=== PATIENT | female | born 1965 | race American Indian/Alaskan Native ===

== ENCOUNTER 2017-09-19 15:23 | Emergency (ER) | payer MEDICAID, OTHER ==
--- NOTE | 2017-09-19 16:50 | XRay Report ---
FINAL REPORT EXAM: XR CHEST ROUTINE 2V HISTORY: shortness of breath TECHNIQUE: PA and lateral views of the chest PRIORS: None. FINDINGS: Lines, tubes, and devices: N/A Lungs and pleura: Trachea is normal in position. Lungs are clear of infiltrate, pleural effusion, vascular congestion, or pneumothorax. Cardiomediastinal silhouette: Cardiac and mediastinal silhouettes are unremarkable. Other: Bony structures are intact. IMPRESSION: No acute cardiopulmonary process seen.
[2017-09-19 17:40] LABS: Basophils % (Auto) 0.4 % (0.0-1.8); Eosinophils # (Auto) 0.1 K/mm3 (0.0-0.4); Eosinophils % (Auto) 2.3 % (0.0-4.3); Hemoglobin 14.2 gm/dl (10.1-14.3); Lymphocytes # (Auto) 0.6 K/mm3 (1.2-5.4); Lymphocytes % (Auto) 18.2 % (13.4-35.0); Mean Corpuscular HGB Conc 34 % (30-34); Mean Corpuscular Hemoglobin 33 pg (28-32); Mean Corpuscular Volume 99 fl (79-97); Monocytes # (Auto) 0.4 K/mm3 (0.0-0.8); Monocytes % (Auto) 11.9 % (0.0-7.3); Platelet Count 179 K/mm3 (140-440); Red Blood Count 4.26 M/mm3 (3.65-5.03); Red Cell Distribution Width 14.2 % (13.2-15.2)
[2017-09-19 18:01] LABS: BUN/Creatinine Ratio 25; Blood Urea Nitrogen 15 mg/dL (7-17); Calcium 9.3 mg/dL (8.4-10.2); Hemolysis Index 14
[2017-09-20] MEDS ORDERED: PROVENTIL IH ONE (04:30)
[2017-09-20] MEDS ORDERED: ATROVENT IH ONE (04:30)
[2017-09-20] MEDS ORDERED: NACL 0.9% 1000 ML 1,000 ML IV ONE (04:32)
--- NOTE | 2017-09-20 05:50 | Emergency Department Report ---
- General Chief Complaint: Upper Respiratory Infection Stated Complaint: UPPER RESP INFECTION Time Seen by Provider: 09/20/17 04:26 Source: patient Mode of arrival: Ambulatory Limitations: No Limitations - History of Present Illness Initial Comments: Patient is a 52-year-old [place] female with past medical history of asthma who is presenting with 3 weeks of cough cold congestion or wheezing. Patient states she did go to urgent care and was started on prednisone but this did not relieve her symptoms. Patient states she has had a fever. Patient states that the cough is very irritating is giving her some mild chest discomfort. There is no pleuritic chest pain but rather with soreness in the chest. Patient denies nausea vomiting diarrhea sore throat. She does have some back ache and shoulder ache with the cough but there is no arm or leg discomfort at this time. Improves With: nothing Worsens With: nothing - Related Data Home Medications Medication Instructions Recorded Confirmed Last Taken Hydroxychloroquine [Plaquenil] 200 mg PO QDAY 05/12/15 11/01/15 05/12/15 06:00 200 Lisinopril [Zestril TAB] 10 mg PO QDAY 05/12/15 11/01/15 05/12/15 06:00 10 Previous Rx's Medication Instructions Recorded Last Taken Type HYDROcodone/APAP 10-325 [[place] 1 each PO Q6HR PRN #20 tablet 05/12/15 Unknown Rx 10/325] Azithromycin [Zithromax Z-DERECK] 250 mg PO DAILY #6 tab 11/01/15 Unknown Rx Fluticasone [Flonase] 1 spray NS QDAY #1 bottle 11/01/15 Unknown Rx guaiFENesin/CODEINE [Robitussin AC] 5 ml PO Q6H PRN #100 ml 11/01/15 Unknown Rx predniSONE [Deltasone] 20 mg PO BID #10 tab 11/01/15 Unknown Rx Benzonatate [Tessalon Perle] 100 mg PO Q6HR #12 capsule 09/20/17 Unknown Rx Doxycycline [Vibramycin] 100 mg PO Q12HR #14 capsule 09/20/17 Unknown Rx predniSONE [Deltasone] 20 mg PO QDAY #5 tab 09/20/17 Unknown Rx Allergies Allergy/AdvReac Type Severity Reaction Status Date / Time No Known Allergies Allergy Verified 09/19/17 15:56 ED Review of Systems ROS: Stated complaint: UPPER RESP INFECTION Other details as noted in HPI Comment: All other systems reviewed and negative ED Past Medical Hx - Past Medical History Previous Medical History?: Yes Hx Hypertension: Yes Hx Asthma: Yes Additional medical history: lupus - Surgical History Additional Surgical History: tubal ligation - Social History Smoking Status: Former Smoker Substance Use Type: Alcohol - Medications Home Medications: Home Medications Medication Instructions Recorded Confirmed Last Taken Type HYDROcodone/APAP 10-325 [[place] 1 each PO Q6HR PRN #20 tablet 05/12/15 11/01/15 Unknown Rx 10/325] Hydroxychloroquine [Plaquenil] 200 mg PO QDAY 05/12/15 11/01/15 05/12/15 06:00 History 200 Lisinopril [Zestril TAB] 10 mg PO QDAY 05/12/15 11/01/15 05/12/15 06:00 History 10 Azithromycin [Zithromax Z-DERECK] 250 mg PO DAILY #6 tab 11/01/15 Unknown Rx Fluticasone [Flonase] 1 spray NS QDAY #1 bottle 11/01/15 Unknown Rx guaiFENesin/CODEINE [Robitussin AC] 5 ml PO Q6H PRN #100 ml 11/01/15 Unknown Rx predniSONE [Deltasone] 20 mg PO BID #10 tab 11/01/15 Unknown Rx Benzonatate [Tessalon Perle] 100 mg PO Q6HR #12 capsule 09/20/17 Unknown Rx Doxycycline [Vibramycin] 100 mg PO Q12HR #14 capsule 09/20/17 Unknown Rx predniSONE [Deltasone] 20 mg PO QDAY #5 tab 09/20/17 Unknown Rx ED Physical Exam - General Limitations: No Limitations General appearance: alert, in no apparent distress - Head Head exam: Present: atraumatic, normocephalic - Eye Eye exam: Present: normal appearance - ENT ENT exam: Present: mucous membranes moist - Neck Neck exam: Present: normal inspection - Respiratory Respiratory exam: Present: wheezes. Absent: normal lung sounds bilaterally, respiratory distress, rales, rhonchi - Cardiovascular Cardiovascular Exam: Present: normal rhythm, tachycardia. Absent: systolic murmur, diastolic murmur, rubs, gallop - GI/Abdominal GI/Abdominal exam: Present: soft, normal bowel sounds. Absent: distended, tenderness, guarding, rebound - Extremities Exam Extremities exam: Present: normal inspection - Back Exam Back exam: Present: normal inspection - Neurological Exam Neurological exam: Present: alert, oriented X3 - Psychiatric Psychiatric exam: Present: normal affect, normal mood - Skin Skin exam: Present: warm, dry, intact, normal color. Absent: rash ED Course Vital Signs 09/19/17 15:58 Temperature 100.3 F H Pulse Rate 114 H Respiratory 18 Rate Blood Pressure 181/109 O2 Sat by Pulse 100 Oximetry ED Medical Decision Making - Lab Data Result diagrams: 09/19/17 17:10 09/19/17 17:10 - EKG Data Interpretation: other (EKG shows sinus tachycardia 102 with LVH normal axis no ST elevations or depression and normal intervals time interpretation is 1620) - Radiology Data Radiology results: report reviewed no acute process - Medical Decision Making She is a 52-year-old asthmatic female with past medical history of asthma who presented with 3 weeks of cough, congestion now patient has a fever as well. Patient had a neb treatment ordered and was given IV fluids. Patient's flu test was negative chest x-ray shows no acute process. Critical care attestation.: If time is entered above; I have spent that time in minutes in the direct care of this critically ill patient, excluding procedure time. ED Disposition Clinical Impression: Upper respiratory infection Qualifiers: URI type: unspecified URI Qualified Code(s): J06.9 - Acute upper respiratory infection, unspecified Asthma exacerbation Qualifiers: Asthma severity: moderate Asthma persistence: persistent Qualified Code(s): J45.41 - Moderate persistent asthma with (acute) exacerbation Does the pt Need Aspirin: No Condition: Stable Instructions: Asthma (ED) Prescriptions: Benzonatate [Tessalon Perle] 100 mg PO Q6HR #12 capsule Doxycycline [Vibramycin] 100 mg PO Q12HR #14 capsule predniSONE [Deltasone] 20 mg PO QDAY #5 tab Referrals: PRIMARY CARE, [Primary Care Provider] - 3-5 Days
[2017-09-20 08:04] VITALS: BP 136/75
== END 2017-09-20 08:10 ==
LOC: ED 15:23
DX: J06.9 Acute upper respiratory infection, unspecified (principal); J45.901 Unspecified asthma with (acute) exacerbation; I10 Essential (primary) hypertension; Z87.891 Personal history of nicotine dependence
CPT/HCPCS: 36415; 71046; 80048; 85025; 87040; 87400; 93005; 93010; 94644; 96361; 96374; 99284; J2930; J7030

== ENCOUNTER 2017-12-01 09:41 | Emergency (ER) | payer MEDICAID ==
[2017-12-01 10:59] VITALS: BP 161/104
[2017-12-01] MEDS ORDERED: MOTRIN PO ONE (11:26)
--- NOTE | 2017-12-01 11:44 | XRay Report ---
LEFT HUMERUS: History: Pain after fall AP and lateral views of the humerus demonstrate normal mineralization and contours for this patient's age. No destructive changes are noted and the adjacent soft tissues are normal. IMPRESSION: Normal left humerus.
--- NOTE | 2017-12-01 11:45 | XRay Report ---
LEFT ELBOW, 3 views: History: left elbow pain. Longitudinal fracture in the lateral radial head is identified with 1-2 mm displacement. The distal humerus and proximal ulna are within normal limits. A large hemarthrosis is noted at the left elbow. IMPRESSION: Radial head fracture.
[2017-12-01] MEDS ORDERED: TYLENOL PO ONE (11:48)
--- NOTE | 2017-12-01 12:17 | Emergency Department Report ---
ED Fall HPI - General Chief Complaint: Extremity Injury, Upper Stated Complaint: FALL, ARM PAIN Time Seen by Provider: 12/01/17 11:03 Source: patient Mode of arrival: Ambulatory - History of Present Illness Initial Comments: This is a 52-year-old female nontoxic, well nourished in appearance, no acute signs of distress presents to the ED with c/o of left elbow pain, left wrist, and left knee pain status post fall. Patient stated she was walking her dog and dog started to run and drag the patient. Patient stated she fell on her elbow knee and elbow area. Patient denies any other trauma. Patient denies any head trauma. Patient denies any headache, nausea, vomiting, chest pain, shortness of breathe, fever, chills, headache, nausea, vomiting, numbness, or tingling. Patient denies any allergies. PMH includes asthma and HTN. MD Complaint: fall -: Last night Fall From: standing Fall Witnessed: yes, by bystander Place Fall Occurred: street Loss of Consciousness: none Prolonged Down Time?: no Symptoms Prior to Fall: none Location - Extremities: Left: Elbow, Knee Severity: mild Severity scale (0 -10): 8 Quality: aching Context: tripped/slipped Associated Symptoms: denies. denies: headache, neck pain, numbness, weakness, chest paint, shortness of breath, abdominal pain, hematuria, unable to walk, lightheaded, vertigo, confusion - Related Data Home Medications Medication Instructions Recorded Confirmed Last Taken Hydroxychloroquine [Plaquenil] 200 mg PO QDAY 05/12/15 11/01/15 05/12/15 06:00 200 Lisinopril [Zestril TAB] 10 mg PO QDAY 05/12/15 11/01/15 05/12/15 06:00 10 Previous Rx's Medication Instructions Recorded Last Taken Type HYDROcodone/APAP 10-325 [[place] 1 each PO Q6HR PRN #20 tablet 05/12/15 Unknown Rx 10/325] Azithromycin [Zithromax Z-DERECK] 250 mg PO DAILY #6 tab 11/01/15 Unknown Rx Fluticasone [Flonase] 1 spray NS QDAY #1 bottle 11/01/15 Unknown Rx guaiFENesin/CODEINE [Robitussin AC] 5 ml PO Q6H PRN #100 ml 11/01/15 Unknown Rx predniSONE [Deltasone] 20 mg PO BID #10 tab 11/01/15 Unknown Rx Benzonatate [Tessalon Perle] 100 mg PO Q6HR #12 capsule 09/20/17 Unknown Rx Doxycycline [Vibramycin] 100 mg PO Q12HR #14 capsule 09/20/17 Unknown Rx predniSONE [Deltasone] 20 mg PO QDAY #5 tab 09/20/17 Unknown Rx Ibuprofen [Motrin] 600 mg PO Q8H PRN #30 tablet 12/01/17 Unknown Rx Allergies Allergy/AdvReac Type Severity Reaction Status Date / Time No Known Allergies Allergy Verified 09/19/17 15:56 ED Review of Systems ROS: Stated complaint: FALL, ARM PAIN Other details as noted in HPI Constitutional: denies: chills, fever Eyes: denies: eye pain, eye discharge, vision change ENT: denies: ear pain, throat pain Respiratory: denies: cough, shortness of breath, wheezing Cardiovascular: denies: chest pain, palpitations Endocrine: no symptoms reported Gastrointestinal: denies: abdominal pain, nausea, diarrhea Genitourinary: denies: urgency, dysuria, discharge Musculoskeletal: arthralgia. denies: back pain, joint swelling Skin: denies: rash, lesions Neurological: denies: headache, weakness, paresthesias Psychiatric: denies: anxiety, depression Hematological/Lymphatic: denies: easy bleeding, easy bruising ED Past Medical Hx - Past Medical History Hx Hypertension: Yes Hx Asthma: Yes Additional medical history: lupus - Surgical History Additional Surgical History: tubal ligation - Social History Smoking Status: Former Smoker - Medications Home Medications: Home Medications Medication Instructions Recorded Confirmed Last Taken Type HYDROcodone/APAP 10-325 [[place] 1 each PO Q6HR PRN #20 tablet 05/12/15 11/01/15 Unknown Rx 10/325] Hydroxychloroquine [Plaquenil] 200 mg PO QDAY 05/12/15 11/01/15 05/12/15 06:00 History 200 Lisinopril [Zestril TAB] 10 mg PO QDAY 05/12/15 11/01/15 05/12/15 06:00 History 10 Azithromycin [Zithromax Z-DERECK] 250 mg PO DAILY #6 tab 11/01/15 Unknown Rx Fluticasone [Flonase] 1 spray NS QDAY #1 bottle 11/01/15 Unknown Rx guaiFENesin/CODEINE [Robitussin AC] 5 ml PO Q6H PRN #100 ml 11/01/15 Unknown Rx predniSONE [Deltasone] 20 mg PO BID #10 tab 11/01/15 Unknown Rx Benzonatate [Tessalon Perle] 100 mg PO Q6HR #12 capsule 09/20/17 Unknown Rx Doxycycline [Vibramycin] 100 mg PO Q12HR #14 capsule 09/20/17 Unknown Rx predniSONE [Deltasone] 20 mg PO QDAY #5 tab 09/20/17 Unknown Rx Ibuprofen [Motrin] 600 mg PO Q8H PRN #30 tablet 12/01/17 Unknown Rx ED Physical Exam - General Limitations: No Limitations General appearance: alert, in no apparent distress - Head Head exam: Present: atraumatic, normocephalic - Eye Eye exam: Present: normal appearance Pupils: Present: normal accommodation - ENT ENT exam: Present: normal exam, mucous membranes moist - Neck Neck exam: Present: normal inspection, full ROM. Absent: tenderness, meningismus, lymphadenopathy - Respiratory Respiratory exam: Present: normal lung sounds bilaterally. Absent: respiratory distress, wheezes, rales, rhonchi, stridor, chest wall tenderness, accessory muscle use, decreased breath sounds, prolonged expiratory - Cardiovascular Cardiovascular Exam: Present: regular rate, normal rhythm, normal heart sounds. Absent: irregular rhythm, systolic murmur, diastolic murmur, rubs, gallop - GI/Abdominal GI/Abdominal exam: Present: soft, normal bowel sounds. Absent: distended, tenderness, guarding, rebound, rigid, diminished bowel sounds - Rectal Rectal exam: Present: deferred - Extremities Exam Extremities exam: Present: normal inspection, full ROM, tenderness, normal capillary refill. Absent: pedal edema, joint swelling, calf tenderness - Expanded Upper Extremity Exam Left General: Present: normal inspection Shoulder Exam: Present: normal inspection, full ROM. Absent: tenderness, swelling, abrasion, laceration, ecchymosis, deformity, crepidus, dislocation, erythema, tenderness over AC joint Upper Arm exam: Present: normal inspection, full ROM, tenderness, abrasion. Absent: swelling, laceration, ecchymosis, deformity, crepidus, dislocation, erythema Elbow exam: Present: normal inspection, full ROM, tenderness, swelling, abrasion. Absent: laceration, ecchymosis, deformity, crepidus, dislocation, erythema, effusion, pain w/ pronation/supination, tenderness over radial head Forearm Wrist exam: Present: normal inspection, full ROM, tenderness. Absent: swelling, abrasion, laceration, ecchymosis, deformity, crepidus, dislocation, erythema, tenderness over anatomical snuff box, pain with axial thumb loading Hand Wrist exam: Present: normal inspection, full ROM. Absent: tenderness, swelling, abrasion, laceration, ecchymosis, deformity, crepidus, dislocation, erythema, amputation, nail avulsion, subungual hematoma Neuro motor exam: Present: wrist extension intact, thumb opposition intact, thumb IP flexion intact, thumb adduction intact, fingers 2-5 abduction intact Neurosensory exam: Present: 2-point discrimination, radial nerve intact, ulnar nerve intact, median nerve intact Vascular: Present: vascular compromise, normal capillary refill, radial pulse, brachial pulse, ulnar pulse - Back Exam Back exam: Present: normal inspection, full ROM. Absent: tenderness, CVA tenderness (R), CVA tenderness (L), muscle spasm, paraspinal tenderness, vertebral tenderness, rash noted - Neurological Exam Neurological exam: Present: alert, oriented X3, CN II-XII intact, normal gait, reflexes normal - Expanded Neurological Exam Expanded Patient oriented to: Present: person, place, time Cranial nerves: Gag Reflex: Normal, Facial Sensation: Normal, Facial Palsy with Forehead Movement: Normal, Facial Palsy without Forehead Movement: Normal Cerebellar function: Finger to Nose: Normal Upper motor neuron: Pronator Drift: Normal, Sensory Extinction: Normal Sensory exam: Upper Extremity Light Touch: Normal, Upper Extremity Pin Prick: Normal, Upper Extremity Temperature: Normal, UE 2 Point Discrimination: Normal, Lower Extremity Light Touch: Normal, Lower Extremity Pin Prick: Normal, Lower Extremity Temperature: Normal, LE 2 Point Discrimination: Normal Motor strength exam: RUE: 5, LUE: 5, RLE: 5, LLE: 5 DTR: bicep (R): 2+, bicep (L): 2+, tricep (R): 2+, tricep (L): 2+, knee (R): 2+ , knee (L): 2+, ankle (R): 2+, ankle (L): 2+ Best Eye Response ([place]): (4) open spontaneously Best Motor Response ([place]): (6) obeys commands Best Verbal Response ([place]): (5) oriented [place] Total: 15 - Psychiatric Psychiatric exam: Present: normal affect, normal mood - Skin Skin exam: Present: warm, dry, intact, normal color. Absent: rash ED Course Vital Signs 12/01/17 12/01/17 10:55 11:30 Temperature 98.4 F Pulse Rate 72 Respiratory 18 18 Rate Blood Pressure 161/104 O2 Sat by Pulse 99 Oximetry - Reevaluation(s) Reevaluation #1: 12/01/17 12:21 Patient is speaking in full sentences with no signs of distress noted. Reevaluation #2: Post splint assessment: neurovasular intact; normal cap refill <2 second; normal sensation; denies decreaed sensation; normal ROM of digits. - Consultations Consultation #1: 12/01/17 12:21 Patient has been consulted with Dr. Hilario (orthopedic) about patient history, physical exam, and xray results and examined and assess patient and stated to place patient on splint with shoulder sling and follow-up. ED Medical Decision Making - Medical Decision Making This is a 52-year-old female that presents with mutiple abrasions, fall, and left radial head fracture. Patient is stable and was examined by me. Dr. Hilario was consulted and assessed patient and stated to follow-up. Xrays has been obtained dictated by the radiologist. Patient notified of the x-ray reports with no was noted by the patient. Patient received a posterior long arm splint and a shoulder sling. Patient was instructed to rice therapy. Post splint assessment: neurovasular intact; normal cap refill <2 second; normal sensation; denies decreaed sensation; normal ROM of digits. Patient discharged with Motrin. Patient also received a walker in the ED and knee immobilizer. Patient was referred instructed to Follow-up with a orthopedic doctor in 3-5 days or if symptoms worsen and continue return to emergency room as soon as possible. At time of discharge, the patient does not seem toxic or ill in appearance. No acute signs of distress noted. Patient agrees to discharge treatment plan of care. No further questions noted by the patient. Critical care attestation.: If time is entered above; I have spent that time in minutes in the direct care of this critically ill patient, excluding procedure time. ED Disposition Clinical Impression: Abrasion Fall Qualifiers: Encounter type: initial encounter Qualified Code(s): W19.XXXA - Unspecified fall, initial encounter Left radial head fracture Qualifiers: Encounter type: initial encounter Fracture type: closed Fracture alignment: displaced Qualified Code(s): S52.122A - Displaced fracture of head of left radius, initial encounter for closed fracture Strain of left wrist Qualifiers: Encounter type: initial encounter Qualified Code(s): S66.912A - Strain of unspecified muscle, fascia and tendon at wrist and hand level, left hand, initial encounter Strain of left knee Qualifiers: Encounter type: initial encounter Qualified Code(s): S86.912A - Strain of unspecified muscle(s) and tendon(s) at lower leg level, left leg, initial encounter Disposition: TO HOME OR SELFCARE Is pt being admited?: No Does the pt Need Aspirin: No Condition: Stable Instructions: Ibuprofen (By mouth), Elbow Fracture in Adults (ED), Abrasion (ED ), RICE Therapy (ED), Knee Immobilizer (ED) Additional Instructions: Follow-up with a orthopedic doctor in 3-5 days or if symptoms worsen and continue return to emergency room as soon as possible. Prescriptions: Ibuprofen [Motrin] 600 mg PO Q8H PRN #30 tablet PRN Reason: Pain Referrals: TESFAYE MUÑOZ FNP [Primary Care Provider] - 3-5 Days PRIMARY CAREMD [Referring] - 3-5 Days LATA HILARIO MD [Staff Physician] - 3-5 Days [facility] [Outside] - 3-5 Days [facility] [Outside] - 3-5 Days
--- NOTE | 2017-12-01 12:39 | XRay Report ---
RIGHT KNEE, 3 views: History: Right knee pain. The bony architecture is intact without evidence of fracture or dislocation. No significant soft tissue abnormality is seen. IMPRESSION: Unremarkable right knee.
--- NOTE | 2017-12-01 12:41 | XRay Report ---
LEFT WRIST, 4 views: HISTORY: Left wrist pain. Routine views demonstrate the carpal bones to be well mineralized with well preserved bony mineralization and interosseous joint spaces. The carpal and adjacent articular bones have normal contours. The surrounding soft tissues are unremarkable. IMPRESSION: Normal study.
== END 2017-12-01 13:09 | disposition home or self-care (01) ==
LOC: ED 09:41
DX: S52.122A Displaced fracture of head of left radius, initial encounter for closed fracture (principal); S76.912A Strain of unspecified muscles, fascia and tendons at thigh level, left thigh, initial encounter; I10 Essential (primary) hypertension; Z87.891 Personal history of nicotine dependence; W18.30XA Fall on same level, unspecified, initial encounter; Y93.89 Activity, other specified; Y92.89 Other specified places as the place of occurrence of the external cause; Y99.8 Other external cause status
CPT/HCPCS: 99284

== ENCOUNTER 2021-10-24 22:14 | Emergency (ER) | payer MEDICAID ==
--- NOTE | 2021-10-24 23:14 | Cat Scan Report ---
CT HEAD WITHOUT CONTRAST INDICATION / CLINICAL INFORMATION: Pt slipped and fell causing a head injury. TECHNIQUE: All CT scans at this location are performed using CT dose reduction for ALARA by means of automated exposure control. COMPARISON: 03/15/2020 FINDINGS: BRAIN PARENCHYMA: No acute intracranial hemorrhage. No evidence of recent infarct. No mass effect or midline shift. White matter chronic small vessel ischemic changes. VENTRICULAR SYSTEM/EXTRA-AXIAL SPACES: Age-related cerebral atrophy. No extra-axial fluid collection. ORBITS: Normal as visualized. SKELETAL SYSTEM/SOFT TISSUES: Normal bones and soft tissues. PARANASAL SINUSES/MASTOID AIR CELLS: No significant abnormality. ADDITIONAL FINDINGS: None. IMPRESSION: 1. No acute intracranial abnormality. Signer Name: Lionel Chatman MD Signed: 10/24/2021 11:09 PM Workstation Name: [id number]
[2021-10-25] MEDS ORDERED: IBUPROFEN 400 MG TAB PO ONE (03:20)
[2021-10-25] MEDS ORDERED: BUTALB/ACETAMINOPHEN/CAFFEINE TAB PO ONE (03:20)
--- NOTE | 2021-10-25 03:51 | Emergency Department Report ---
ED Fall HPI - General Chief Complaint: Fall Stated Complaint: FALL/HIT HEAD Source: patient Mode of arrival: Ambulatory - History of Present Illness Initial Comments: Patient is a 56-year-old -[place] female with a history of SLE, asthma and hypertension who presented to the ED with complaint of acute onset headache after she slipped on a wet floor at her apartment complex and fell down landing on her back and hitting her occipital scalp over 12 hours ago. Patient states that the headache is been persistent since the incident occurred. Patient denies loss of consciousness, change in vision, nausea, vomiting, dizziness, seizures, syncope, heavy lifting or abdominal pain, back pain, neck pain, numbness and tingling or weakness of upper and lower extremities bilaterally. MD Complaint: fall, other (head injury) -: Sudden, hour(s) (18) Fall From: standing When Fall Occurred: other (over 12 hours ago) Fall Witnessed: yes, by family Place Fall Occurred: home Loss of Consciousness: none Prolonged Down Time?: no Symptoms Prior to Fall: none Location: head Severity: moderate Severity scale (0 -10): 6 Quality: sharp, aching Context: tripped/slipped Associated Symptoms: denies, headache. denies: neck pain, numbness, weakness, chest paint, shortness of breath, abdominal pain, unable to walk, confusion, other - Related Data Home Medications Medication Instructions Recorded Confirmed Last Taken Hydroxychloroquine [Plaquenil] 200 mg PO QDAY 05/12/15 11/01/15 05/12/15 06:00 200 lisinopriL [Zestril TAB] 10 mg PO QDAY 05/12/15 11/01/15 05/12/15 06:00 10 Previous Rx's Medication Instructions Recorded Last Taken Type HYDROcodone/APAP 10-325 [[place] 1 each PO Q6HR PRN #20 tablet 05/12/15 Unknown Rx 10/325] Azithromycin [Zithromax Z-DERECK] 250 mg PO DAILY #6 tab 11/01/15 Unknown Rx Fluticasone [Flonase] 1 spray NS QDAY #1 bottle 11/01/15 Unknown Rx guaiFENesin/CODEINE [Robitussin AC] 5 ml PO Q6H PRN #100 ml 11/01/15 Unknown Rx predniSONE [Deltasone] 20 mg PO BID #10 tab 11/01/15 Unknown Rx Benzonatate [Tessalon Perle] 100 mg PO Q6HR #12 capsule 09/20/17 Unknown Rx DOXYCYCLINE Hyclate [Vibramycin] 100 mg PO Q12HR #14 capsule 09/20/17 Unknown Rx predniSONE [Deltasone] 20 mg PO QDAY #5 tab 09/20/17 Unknown Rx Ibuprofen [Motrin] 600 mg PO Q8H PRN #30 tablet 12/01/17 Unknown Rx oxyCODONE /ACETAMINOPHEN [Percocet 1 tab PO Q6H PRN #12 tablet 03/15/20 Unknown Rx 5/325 mg] Acetaminophen [Tylenol] 500 mg PO Q6HR PRN #24 tablet 10/25/21 Unknown Rx Ibuprofen [Motrin] 400 mg PO Q8H PRN #20 tablet 10/25/21 Unknown Rx Allergies Allergy/AdvReac Type Severity Reaction Status Date / Time No Known Allergies Allergy Verified 09/19/17 15:56 ED Review of Systems ROS: Stated complaint: FALL/HIT HEAD Other details as noted in HPI Constitutional: denies: chills, fever Eyes: denies: eye pain, eye discharge, vision change ENT: denies: ear pain, throat pain Respiratory: denies: cough, shortness of breath, wheezing Cardiovascular: denies: chest pain, palpitations Endocrine: no symptoms reported Gastrointestinal: denies: abdominal pain, nausea, diarrhea Genitourinary: denies: urgency, dysuria, discharge Musculoskeletal: denies: back pain, joint swelling, arthralgia Skin: other (Occipital scalp localized pain). denies: rash, lesions Neurological: headache. denies: weakness, paresthesias Psychiatric: denies: anxiety, depression Hematological/Lymphatic: denies: easy bleeding, easy bruising ED Past Medical Hx - Past Medical History Previous Medical History?: Yes Hx Hypertension: Yes Hx Asthma: Yes Additional medical history: lupus - Surgical History Past Surgical History?: Yes Additional Surgical History: tubal ligation - Social History Smoking Status: Current Every Day Smoker Substance Use Type: Alcohol - Medications Home Medications: Home Medications Medication Instructions Recorded Confirmed Last Taken Type HYDROcodone/APAP 10-325 [[place] 1 each PO Q6HR PRN #20 tablet 05/12/15 11/01/15 Unknown Rx 10/325] Hydroxychloroquine [Plaquenil] 200 mg PO QDAY 09/07/1611/01/15 05/12/15 06:00 History 200 lisinopriL [Zestril TAB] 10 mg PO QDAY 05/12/15 11/01/15 05/12/15 06:00 History 10 Azithromycin [Zithromax Z-DERECK] 250 mg PO DAILY #6 tab 11/01/15 Unknown Rx Fluticasone [Flonase] 1 spray NS QDAY #1 bottle 11/01/15 Unknown Rx guaiFENesin/CODEINE [Robitussin AC] 5 ml PO Q6H PRN #100 ml 11/01/15 Unknown Rx predniSONE [Deltasone] 20 mg PO BID #10 tab 11/01/15 Unknown Rx Benzonatate [Tessalon Perle] 100 mg PO Q6HR #12 capsule 09/20/17 Unknown Rx DOXYCYCLINE Hyclate [Vibramycin] 100 mg PO Q12HR #14 capsule 09/20/17 Unknown Rx predniSONE [Deltasone] 20 mg PO QDAY #5 tab 09/20/17 Unknown Rx Ibuprofen [Motrin] 600 mg PO Q8H PRN #30 tablet 12/01/17 Unknown Rx oxyCODONE /ACETAMINOPHEN [Percocet 1 tab PO Q6H PRN #12 tablet 03/15/20 Unknown Rx 5/325 mg] Acetaminophen [Tylenol] 500 mg PO Q6HR PRN #24 tablet 10/25/21 Unknown Rx Ibuprofen [Motrin] 400 mg PO Q8H PRN #20 tablet 10/25/21 Unknown Rx ED Physical Exam - General Limitations: No Limitations General appearance: alert, in no apparent distress - Head Head exam: Present: other (Palpable occipital scalp localized tenderness) - Eye Eye exam: Present: normal appearance, PERRL, EOMI Pupils: Present: normal accommodation - ENT ENT exam: Present: normal exam, normal orophraynx, mucous membranes moist, TM's normal bilaterally, normal external ear exam - Neck Neck exam: Present: normal inspection, full ROM - Respiratory Respiratory exam: Present: normal lung sounds bilaterally. Absent: respiratory distress, wheezes, rales, stridor, chest wall tenderness, accessory muscle use, decreased breath sounds, other - Cardiovascular Cardiovascular Exam: Present: regular rate, normal rhythm, normal heart sounds. Absent: systolic murmur, diastolic murmur, rubs, gallop - GI/Abdominal GI/Abdominal exam: Present: soft, normal bowel sounds. Absent: tenderness, guarding, rebound, hyperactive bowel sounds, hypoactive bowel sounds, organomegaly, bruit, pulsatile mass - Extremities Exam Extremities exam: Present: normal inspection, full ROM, normal capillary refill - Back Exam Back exam: Present: normal inspection, full ROM. Absent: tenderness, CVA tenderness (R), CVA tenderness (L), muscle spasm, paraspinal tenderness, vertebral tenderness - Neurological Exam Neurological exam: Present: alert, oriented X3, CN II-XII intact, normal gait, reflexes normal - Psychiatric Psychiatric exam: Present: normal affect, normal mood - Skin Skin exam: Present: warm, dry, intact, normal color. Absent: rash ED Course Vital Signs 10/24/21 22:34 Temperature 98.2 F Pulse Rate 86 Respiratory 18 Rate Blood Pressure 112/74 O2 Sat by Pulse 96 Oximetry ED Medical Decision Making - Radiology Data Radiology results: report reviewed, [place] [address] Cat Scan Report Signed Patient: SOMMER FAROOQ MR#: [id number] : 1965 Acct:[id number] Age/Sex: 56 / F ADM Date: 10/24/21 Loc: ED Attending Dr: Ordering Physician: NEAL MONREAL MD Date of Service: 10/24/21 Procedure(s): CT head/brain wo con Accession Number(s): [id number] cc: ED MD JOCELIN CT HEAD WITHOUT CONTRAST INDICATION / CLINICAL INFORMATION: Pt slipped and fell causing a head injury. TECHNIQUE: All CT scans at this location are performed using CT dose reduction for ALARA by means of automated exposure control. COMPARISON: 03/15/2020 FINDINGS: BRAIN PARENCHYMA: No acute intracranial hemorrhage. No evidence of recent infarct. No mass effect or midline shift. White matter chronic small vessel ischemic changes. VENTRICULAR SYSTEM/EXTRA-AXIAL SPACES: Age-related cerebral atrophy. No extra- axial fluid collection. ORBITS: Normal as visualized. SKELETAL SYSTEM/SOFT TISSUES: Normal bones and soft tissues. PARANASAL SINUSES/MASTOID AIR CELLS: No significant abnormality. ADDITIONAL FINDINGS: None. IMPRESSION: 1. No acute intracranial abnormality. Signer Name: Bear Serrano MD Signed: 10/24/2021 11:09 PM Workstation Name: [id number] Transcribed By: MARV Dictated By: BEAR SERRANO MD Electronically Authenticated By: BEAR SERRANO MD Signed Date/Time: 10/24/212308 DD/ 08 TD/TT: - Medical Decision Making This is a 56-year-old -[place] female with a history of SLE, asthma and hypertension who presented to the ED with complaint of acute onset headache after she slipped on a wet floor at her apartment complex and fell down landing on her back and hitting her occipital scalp over 12 hours ago. Patient states that the headache is been persistent since the incident occurred. In the ED, patient is alert and oriented x3 and is not in distress. Patient is hemodynamically stable. Patient was treated for pain in the ED and head CT scan without contrast showed no acute intracranial abnormalities or hemorrhage. On reevaluation, patient's pain significantly improved with medications and was discharged home on pain medications and advised follow-up with her primary care physician in 5 to 7 days for reevaluation. Patient has no neurological symptoms. Patient was also advised return to the ED immediately if symptoms get worse. - Differential Diagnosis Scalp contusion; head injury; head concussion Critical care attestation.: If time is entered above; I have spent that time in minutes in the direct care of this critically ill patient, excluding procedure time. ED Disposition Clinical Impression: Acute post-traumatic headache, not intractable Contusion of scalp Qualifiers: Encounter type: initial encounter Qualified Code(s): S00.03XA - Contusion of scalp, initial encounter Head injury, acute, without loss of consciousness Qualifiers: Encounter type: initial encounter Qualified Code(s): S09.90XA - Unspecified injury of head, initial encounter Disposition: 01 HOME / SELF CARE / HOMELESS Is pt being admited?: No Does the pt Need Aspirin: No Condition: Stable Instructions: Facial or Scalp Contusion, [id number], Post-Concussion Syndrome, Sclb-[id number], Tension Headache, Adult, [id number] Additional Instructions: The head CT scan without contrast showed no acute intracranial abnormalities or hemorrhage. Therefore take medications with food, drink plenty of fluids and follow-up with your primary care physician in 5 to 7 days for reevaluation. Return to the ED immediately if symptoms get worse. Prescriptions: Acetaminophen [Tylenol] 500 mg PO Q6HR PRN #24 tablet PRN Reason: Pain , Severe (7-10) Ibuprofen [Motrin] 400 mg PO Q8H PRN #20 tablet PRN Reason: Pain , Severe (7-10) Referrals: [facility] [Provider Group] - 3-5 Days Time of Disposition: 03:53 Print Language: KHMER
[2021-10-25 04:16] VITALS: BP 125/80
== END 2021-10-25 04:13 | disposition home or self-care (01) ==
LOC: ED 22:14
DX: S00.03XA Contusion of scalp, initial encounter (principal); S09.90XA Unspecified injury of head, initial encounter; G44.319 Acute post-traumatic headache, not intractable; F10.20 Alcohol dependence, uncomplicated; J45.909 Unspecified asthma, uncomplicated; F17.200 Nicotine dependence, unspecified, uncomplicated; I10 Essential (primary) hypertension; W19.XXXA Unspecified fall, initial encounter; Y93.89 Activity, other specified; Y92.89 Other specified places as the place of occurrence of the external cause; Y99.8 Other external cause status
CPT/HCPCS: 70450; 99283